=== PATIENT | male | born 1985 | race Caucasian/White ===

== ENCOUNTER 2017-09-24 11:18 | Emergency (ER) | payer SELFPAY ==
[~2017-09-24] VITALS: Ht 161.3 cm; Wt 53.6 kg
[2017-09-24 11:48] VITALS: BP 126/66; PULSE 73; RESP 18; TEMP 98.8; O2SAT 96
--- NOTE | 2017-09-24 12:47 | RADRPT ---
EXAM DATE/TIME: 09/24/2017 12:26 [place] COMPARISON: No previous studies available for comparison. INDICATIONS : Patient states cough. MEDICAL HISTORY : None. SURGICAL HISTORY : None. ENCOUNTER: Initial ACUITY: 1 week PAIN SCORE: 5/10 LOCATION: Bilateral chest FINDINGS: PA and lateral views of the chest were obtained and demonstrate right upper lobe infiltrate. Left kathya g is clear. There is no effusion. The patient is status post median sternotomy. The heart size is wit hin normal limits. The bony thorax is intact. CONCLUSION: Right upper lobe infiltrate characteristic of pneumonia. Hebert Denton MD on September 24, 2017 at 12:44 Board Certified Radiologist. This report was verified electronically.
[2017-09-24] MEDS ORDERED: LEVOFLOXACIN 500 MG TAB PO ONE (14:30)
[2017-09-24 15:59] LABS: AUTOMATED NEUTROPHIL # 5.1 TH/MM3 (1.8-7.7); BASOPHIL # 0.1 TH/MM3 (0-0.2); BASOPHIL % 0.9 % (0.0-2.0); EOSINOPHIL # 0.4 TH/MM3 (0-0.4); EOSINOPHIL % 5.6 % (0.0-4.0); HEMATOCRIT 41.1 % (39.0-51.0); HEMOGLOBIN 14.6 GM/DL (13.0-17.0); LYMPHOCYTE # 1.4 TH/MM3 (1.0-4.8); MEAN CELL VOLUME 90.7 FL (80.0-100.0); MEAN CORPUSCULAR HEMOGLOBIN 32.3 PG (27.0-34.0); MEAN CORPUSCULAR HGB CONC 35.6 % (32.0-36.0); MEAN PLATELET VOLUME 8.6 FL (7.0-11.0); MONO % 9.9 % (0.0-8.0); MONOCYTE # 0.8 TH/MM3 (0-0.9); NEUT % 65.6 % (16.0-70.0); PLATELET COUNT 211 TH/MM3 (150-450); RED BLOOD COUNT 4.53 MIL/MM3 (4.50-5.90); RED CELL DISTRIBUTION WIDTH 12.4 % (11.6-17.2); WHITE BLOOD COUNT 7.8 TH/MM3 (4.0-11.0)
[2017-09-24] MEDS ORDERED: LEVA500T33 PO (16:09)
--- NOTE | 2017-09-24 16:10 | PD ---
HPI Chief Complaint: Cold / Flu Symptoms Time Seen by Provider: 13:45 Travel History International Travel<30 days: No Contact w/Intl Traveler<30days: No Traveled to known affect area: No History of Present Illness HPI 32-year-old male came to the emergency room with history of cough for past 1 week. His is here with him as well and is giving additional history. She said during the first couple days of the illness he was getting some temperature of 100.9 which has stopped. This morning his temperature was 99. Patient says he is coughing up yellowish colored sputum. He does not appear to be in any significant distress currently. His vital signs are stable. His son is sick with bronchitis. Patient is a smoker. He is complaining of some chest pain as well but mostly when he coughs. FORMERLY [facility] Past Medical History Narrative Medical List of his past medical, surgical, social and family history is reviewed from the nursing note. Past Surgical History Cardiac Surgery: Yes (18 months of age/ ) Social History Alcohol Use: Yes Tobacco Use: Yes Substance Use: No Allergies-Medications (Allergen,Severity, Reaction): Coded Allergies: No Known Allergies (Unverified , 09/24/17) Comments No known drug allergies Reported Meds & Prescriptions Reported Meds & Active Scripts Active Levaquin (Levofloxacin) 500 Mg Tablet 500 Mg PO DAILY 10 Days Narrative Medication Awaiting for the nurse to do the med reconciliation P Review of Systems Except as stated in HPI: all other systems reviewed are Neg Cardiovascular: Positive: Chest Pain or Discomfort Respiratory: Positive: Cough Physical Exam Narrative GENERAL: Awake, alert, no obvious to SKIN: Focused skin assessment warm/dry. HEAD: Atraumatic. Normocephalic. EYES: Pupils equal and round. No scleral icterus. No injection or drainage. ENT: No nasal bleeding or discharge. Mucous membranes pink and moist. Extremely poor dentition with multiple caries NECK: Trachea midline. No JVD. CARDIOVASCULAR: Regular rate and rhythm. No murmur appreciated. RESPIRATORY: No accessory muscle use. Coarse breath sounds bilaterally GASTROINTESTINAL: Abdomen soft, non-tender, nondistended. Hepatic and splenic margins not palpable. MUSCULOSKELETAL: No obvious deformities. No clubbing. No cyanosis. No edema. NEUROLOGICAL: Awake and alert. No obvious cranial nerve deficits. Motor grossly within normal limits. Normal speech. PSYCHIATRIC: Appropriate mood and affect; insight and judgment normal. Data Data Last Documented VS Orders Orders Electrocardiogram (09/24/17 ) Chest, Pa & Lat (09/24/17 ) Complete Blood Count With Diff (09/24/17 14:26) Basic Metabolic Panel (Bmp) (09/24/17 14:26) Blood Culture (09/24/17 14:26) Levofloxacin (Levaquin) (09/24/17 14:30) Ed Discharge Order (09/24/17 16:32) Labs Laboratory Tests Test 09/24/17 15:30 White Blood Count 7.8 TH/MM3 Red Blood Count 4.53 MIL/MM3 Hemoglobin 14.6 GM/DL Hematocrit 41.1 % Mean Corpuscular Volume 90.7 FL Mean Corpuscular Hemoglobin 32.3 PG Mean Corpuscular Hemoglobin Concent 35.6 % Red Cell Distribution Width 12.4 % Platelet Count 211 TH/MM3 Mean Platelet Volume 8.6 FL Neutrophils (%) (Auto) 65.6 % Lymphocytes (%) (Auto) 18.0 % Monocytes (%) (Auto) 9.9 % Eosinophils (%) (Auto) 5.6 % Basophils (%) (Auto) 0.9 % Neutrophils # (Auto) 5.1 TH/MM3 Lymphocytes # (Auto) 1.4 TH/MM3 Monocytes # (Auto) 0.8 TH/MM3 Eosinophils # (Auto) 0.4 TH/MM3 Basophils # (Auto) 0.1 TH/MM3 CBC Comment DIFF FINAL Differential Comment Blood Urea Nitrogen 13 MG/DL Creatinine 0.84 MG/DL Random Glucose 87 MG/DL Calcium Level 9.1 MG/DL Sodium Level 139 MEQ/L Potassium Level 4.3 MEQ/L Chloride Level 105 MEQ/L Carbon Dioxide Level 25.3 MEQ/L Anion Gap 9 MEQ/L Estimat Glomerular Filtration Rate 107 ML/MIN MDM Medical Decision Making Medical Screen Exam Complete: Yes Emergency Medical Condition: Yes Medical Record Reviewed: Yes Interpretation(s) Twelve-lead EKG was reviewed by me. Normal sinus rhythm, right bundle branch block, normal axis. Heart rate of 67 bpm Differential Diagnosis Bacterial pneumonia, viral pneumonia Narrative Course 4:07 PM there was x-ray done in triage which was read by the time patient came to the ER. It was read as right upper lobe infiltrate. I have given him a dose of Levaquin and blood test and blood culture has been ordered. Awaiting for chemistry to come back. CBC is within normal limits. Patient will be discharged home on Levaquin prescription. Procedures EKG Prior to Arrival: No Diagnosis Primary Impression: Cough Additional Impressions: Pneumonia Qualified Codes: J18.1 - Lobar pneumonia, unspecified organism Needs smoking cessation education Referrals: Primary Care Physician 3 days Additional Instructions: He should not be smoking until your antibiotics are done and symptoms improved. Take the medication as per the prescription direction. Return to the ER if condition worsens or any other new concerns. Otherwise follow-up with your primary care. Med/Other Pt SpecificInfo: Prescription(s) given Scripts Levofloxacin (Levaquin) 500 Mg Tablet 500 MG PO DAILY for Infection for 10 Days, #10 TAB 0 Refills Prov: José Manuel William MD 09/24/17 Disposition: 01 DISCHARGE HOME Condition: Stable José Manuel William MD Sep 24, 2017 16:10
[2017-09-24 16:31] LABS: BICARBONATE 25.3 MEQ/L (21.0-32.0); CALCIUM 9.1 MG/DL (8.5-10.1); CREATININE 0.84 MG/DL (0.60-1.30)
[2017-09-24 16:51] VITALS: BP 123/65
--- NOTE | 2017-09-24 17:41 | EKG ---
Date Performed: 09/24/2017 Time Performed: 13:57:32 PTAGE: 32 years EKG: Sinus rhythm INDETERMINATE AXIS RIGHT BUNDLE BRANCH BLOCK ABNORMAL ECG NO PREVIOUS TRACING DOCTOR: Koko Correa Interpretating Date/Time 09/24/2017 17:39:04
== END 2017-09-24 16:52 | disposition home or self-care (01) ==
LOC: NEPD 11:18
DX: J18.1 Lobar pneumonia, unspecified organism (principal); R94.31 Abnormal electrocardiogram [ECG] [EKG]; Z72.0 Tobacco use
CPT/HCPCS: 71046; 80048; 85025; 87040; 93005; 99285